=== PATIENT | male | born 1990 | race Two or more races ===

== ENCOUNTER 2024-04-28 15:29 | Outpatient (RCR) | payer MEDICAID, SELFPAY | END 2024-05-14 23:59 | disposition home or self-care (01) | LOC: SCTC 15:29 | PROVIDERS: PCP Family Medicine; Referring Provider Family Medicine; Visit Provider Internal Medicine Hematology & Oncology | DX: C62.11 Malignant neoplasm of descended right testis (principal); C78.7 Secondary malignant neoplasm of liver and intrahepatic bile duct; R59.0 Localized enlarged lymph nodes; Z92.21 Personal history of antineoplastic chemotherapy; Z90.79 Acquired absence of other genital organ(s) | CPT/HCPCS: 99212; G0463 ==

== ENCOUNTER 2024-08-18 14:33 | Outpatient (RCR) | payer MEDICAID, SELFPAY ==
--- NOTE | 2024-08-22 01:14 | CTCFLWUP_ITS ---
Patient: HELDER CALZADA : 1990 Page 8 of 10 FOLLOW UP NOTE DATE OF SERVICE: 08/18/2024 NAME: HELDER CALZADA ACCOUNT: [id number] : 1990 AGE: 34 INTERVAL HISTORY: Patient is doing well. Patient was seen at [facility]. Patient had a scan in July 2023 which showed significant decrease in size of the tumor slightly decreased size of peritoneal nodules in the left lower abdomen and mildly increased conspicuity of the mesenteric lymph nodes between 7 to [address]. [address] scan on 07/20/2024 which overall are similar to slightly decreased size of multiple hepatic fluid collections although segment 7 collection contains increasingly conspicuous intermediate density nodule given low density of prior metastasis may represent validating tablet tablets rather than disease recurrence recommend attention on follow-up imaging. Unchanged subcentimeter left peritoneal nodule. No evidence of new or worsening metastatic disease. 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 Sepulveda was treated with 3 cycles of BEP chemotherapy. 05/02/2021: Small abdominal pelvic lymphadenopathy documented in the CT scans as described below. S/p 2 cycles of etoposide and cisplatin (12/23/2021 - 01/17/2022) Recurrence. S/p 1 cycle of TIP chemotherapy. July 2022: S/p CE chemotherapy and autologous stem cell transplant. 10/23/2022: S/p excision of residual abdominal masses did not show any evidence of viable tumor 11/14/2022: Patient was found to have 12 cm abscess near liver treated with IR drain as well as antibiotics. DATE OF DIAGNOSIS: 03/31/2022 PATHOLOGY: Metastatic embryonal carcinoma STAGE/TNM: Stage IIb TREATMENT HISTORY: Care?Plan Start?Date Cycle Day Intent BEP 01/28/2021 1 21 Curative?(primary) Etoposide?Cisplatin?q21?days?4?cycles 12/23/2021 1 21 Curative?(adjuvant) HISTORY OF PRESENT ILLNESS: Helder Sepulveda is a 34-year-old ENG speaking male with following oncology history. 11/13/2020: Patient was seen in the emergency room for right testicular pain. Ultrasound done echogenic mass measuring 5.2 x 5.4 x 6.6 cm in the right testes. 11/14/2020: Patient had a right radical orchiectomy at [facility] in [facility]. Beta-hCG 40, AFP 11.5, LDH 393. These tumor markers were done few days after the surgery. Exact date is not available. 11/29/2020: CT scan of the chest abdomen and pelvis with IV contrast? 12/07/2020: beta-hCG positive, AFP 1.9, LDH 202. 12/26/2020: Beta-hCG 79, AFP less than 1.3, LDH 223. 02/19/2021: Beta-hCG less than 3, AFP 2.3 03/18/2021: Beta-hCG less than 3, alpha-fetoprotein 3.0. 01/28/2021?04/09/2021: Mr. Sepulveda was treated with 3 cycles of BEP chemotherapy. 05/02/2021: CT scan of the chest abdomen and pelvis with IV contrast? 06/12/2021: AFP 1.7, beta-hCG less than 1 07/11/2021: Patient was seen by Dr. Blayne Ponce of [facility]. 10/30/2021: AFP less than 0.9, beta-hCG less than 1. 11/13/2021: Mr. Calzada's case was presented at [facility] tumor board. 12/06/2021: Pulmonary function test? 12/13/2021: CT scan of the chest abdomen and pelvis with IV contrast 12/23/2021: Beta-hCG 10, AFP less than 1.30 12/23/2021 - 01/17/2022: Mr. Calzada received 2 cycles of etoposide and cisplatin chemotherapy. 01/13/2022: Beta-hCG less than 3, AFP 4.10 02/11/2022: AFP 1.4, beta-hCG 5 03/31/2022: AFP 2.1, beta-hCG 49, LDH 2185. 04/01/2022: See the scan of the chest abdomen and pelvis with IV contrast? 06/20/2022, 07/18/2022: S/p autologous stem cell transplantation 10/23/2022: Patient had extensive surgery for residual masses which logically did not show any malignant. 11/14/2022 - 11/26/2022: Was admitted to [facility] for abdominal abscess. He was treated with IV antibiotics and a drain 01/07/2023: AFP less than 1.8, beta-hCG less than 1. 12/26/2022: CT scan of the chest, abdomen and pelvis was done at [facility] 03/27/2023: AFP less than 1.8, beta-hCG less than 1 10/22/2023: AFP less than 1.8, beta-hCG less than 1. 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 None Medications Last Reconciled by Awilda Block MA on 08/18/2024 ALLERGIES: No Known Drug Allergies REVIEW OF SYSTEMS: A complete 14-point review of systems was performed and is negative except as noted in interval history. PHYSICAL EXAMINATION: VITAL SIGNS: PAIN: 0 - No pain GENERAL APPEARANCE: Appears well, in no apparent distress, appropriately interactive. HEENT: Normocephalic, no temporal wasting, normal conjunctiva, no scleral icterus, normal hearing, lips without lesions, neck normal range of motion. CARDIOVASCULAR: Not assessed. PULMONARY: Normal respiratory effort, no respiratory distress or use of accessory muscles, speaking in full sentences, no tachypnea. EXTREMITIES: No pedal edema or cyanosis. SKIN: Normal skin appearance. NEUROLOGIC: Alert and oriented x4. PSHYCHIATRIC: Appropriate affect, mood normal, behavior normal, intact thought and speech. LABORATORY DATA: I have personally reviewed and interpreted each of the patient?s relevant lab tests, abnormal findings are below: Date 12/23/21 01/13/22 ??WHITE?BLOOD?COUNT?(Thou/mm3) 6.9 4.0 ??RED?BLOOD?COUNT?(Miln/mm3) 5.59 5.48 ??HEMOGLOBIN?(gm/dl) 15.4 15.2 ??HEMATOCRIT?(%) 44.1 43.2 ??PLATELET?COUNT?(Thou/mm3) 225 232 ??NEUTROPHILS?%,?AUTO?(%) 67 57 ??LYMPH?%,?AUTO?(%) 23 27 ??NEUTROPHILS,?AUTO?(Thou/mm3) 4.6 2.3 ??GLUCOSE,RANDOM?(mg/dL) 88 139?H ??BLOOD?UREA?NITROGEN?(mg/dL) 10 12 ??CREATININE?(mg/dL) 0.80 0.80 ??SODIUM?(mmol/L) 139 138 ??POTASSIUM?(mmol/L) 4.1 3.9 ??CHLORIDE?(mmol/L) 108?H 103 ??CrCl?(CandG)?(ml/min) 218.03 215.18 ??AST/SGOT?(Unit/L) 34 33 ??ALT/SGPT?(Unit/L) 31 40 ??ALKALINE?PHOSPHATASE?(Unit/L) 99 92 ??BILIRUBIN,?TOTAL?(mg/dL) 0.7 0.4 ??PROTEIN?TOTAL?(gm/dl) 7.6 8.1 ??ALBUMIN,?SERUM?(gm/dl) 4.7 4.7 ??GLOBULIN?(gm/dl) 2.9 3.4 ??ALBUMIN/GLOBULIN?RATIO 1.6 1.4 ??CALCIUM,?SERUM?(mg/dL) 8.7 9.2 ??CALCIUM?SERUM?(CORRECTED)?(mg/dL) 8.7 9.2 ASSESSMENT/PLAN: 1. 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 S/p 2 cycles of etoposide and cisplatin completed on 01/17/2022. S/p robotic assisted right template RPL ND (10/14/2021) which showed 1 out of 21 lymph nodes positive for embryonal carcinoma and teratoma (10 to 15% of the kellen mass). aFP and beta-hCG are in the normal range. So far patient had 1 cycle of TIP chemotherapy at [facility]. He is scheduled to receive second cycle of TIP chemotherapy on 05/07/2022. Currently he is also being evaluated for bone marrow transplant. S/p resection of the residual masses without any evidence of residual malignancy. S/p autologous bone marrow transplantation.. Stage IIb S1 (pT2cN2, cM0) embryonal carcinoma with lymphovascular invasion and retroperitoneal lymphadenopathy. Status post right radical orchiectomy. S/p 3 cycles of BEP chemotherapy. History of smoking weed for about 5 years. Stopped in 2019 The patient denies any complaints. Recently had CT scans done at [facility] which were negative for recurrence. Recent CT scans done 01/20/2024 are negative for recurrence. Beta-hCG less than 1 and AFP less than 1.8). . CT scan on 08/04/2024 reviewed and is stable Tumor markers are negative Patient will have another CT scan in [address] abdomen pelvis as well as x-ray chest also will get CBC CMP hCG LDH and AFP No specific intervention today. The patient will be getting repeat CT scans at [facility] January 2025. I will see him back in clinic in 6 months with CBC, CMP, AFP, beta-hCG as well as LDH done prior to the visit. ORDERS: Beta-hCG LDH alpha-fetoprotein CBC CMP RETURN TO CLINIC: I will see him back in the clinic in 6 month. BILLING AND COMPLIANCE: I reviewed external records from providers outside my specialty as summarized above. I spent a total of 50 minutes on this patient?s care on the day of their visit excluding time spent related to any billed procedures. This time includes time spent with the patient as well as time spent documenting in the medical record, reviewing patients records and tests, obtaining history, placing orders, communicating with other healthcare professionals, counseling the patient, family or caregiver, and/or care coordination for the diagnoses above. Electronically Signed by: Jhoan Ford MD T: 1:11 AM CC: Patrick?Radha? PCP: Jhoan Ford Referring: Yannick Lewis This document was completed utilizing speech recognition software. Grammatical errors, random word insertions, pronoun errors, and incomplete sentences are an occasional consequence of this system due to software limitations, ambient noise, and hardware issues. Any formal questions or concerns about the content, text or information contained within the body of this dictation should be directly addressed to the provider for clarification.
== END 2024-09-12 23:59 | disposition home or self-care (01) ==
LOC: SCTC 14:33
PROVIDERS: PCP Family Medicine; Referring Provider Family Medicine; Visit Provider Internal Medicine Hematology & Oncology
DX: C62.11 Malignant neoplasm of descended right testis (principal); C78.7 Secondary malignant neoplasm of liver and intrahepatic bile duct; R59.0 Localized enlarged lymph nodes; Z92.21 Personal history of antineoplastic chemotherapy; Z90.79 Acquired absence of other genital organ(s)
CPT/HCPCS: 99212; G0463

== ENCOUNTER 2025-03-02 15:05 | Outpatient (RCR) | payer MEDICAID, SELFPAY ==
--- NOTE | 2025-03-05 22:54 | CTCFLWUP_ITS ---
Patient: HELDER CALZADA : 1990 Page 10 of 11 FOLLOW UP NOTE DATE OF SERVICE: 03/02/2025 NAME: HELDER CALZADA ACCOUNT: [id number] : 1990 AGE: 35 INTERVAL HISTORY: Patient is doing well. Patient was seen at [facility]. Patient had a scan in July 2023 which showed significant decrease in size of the tumor slightly decreased size of peritoneal nodules in the left lower abdomen and mildly increased conspicuity of the mesenteric lymph nodes between 7 to [address]. [address] scan on 07/20/2024 which overall are similar to slightly decreased size of multiple hepatic fluid collections although segment 7 collection contains increasingly conspicuous intermediate density nodule given low density of prior metastasis may represent validating tablet tablets rather than disease recurrence recommend attention on follow-up imaging. Unchanged subcentimeter left peritoneal nodule. No evidence of new or worsening metastatic disease. 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 Sepulveda was treated with 3 cycles of BEP chemotherapy. 05/02/2021: Small abdominal pelvic lymphadenopathy documented in the CT scans as described below. S/p 2 cycles of etoposide and cisplatin (12/23/2021 - 01/17/2022) Recurrence. S/p 1 cycle of TIP chemotherapy. July 2022: S/p CE chemotherapy and autologous stem cell transplant. 10/23/2022: S/p excision of residual abdominal masses did not show any evidence of viable tumor 11/14/2022: Patient was found to have 12 cm abscess near liver treated with IR drain as well as antibiotics. 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 sperrnatic cord margin negative. LVI+. PT2Nx). - CT CAP obtained at diagnosis showed retroperitoneal node involvement (including 2.1cm aortocaval node), but no pulmonary or visceral disease. Tumor markers obtained ~6 weeks after orchiectomy showed persistent elevation in bHCG. consistent with good risk Stage IIB S1 ([id number]). - He underwent 3 cycles of BEP. Post-chemotherapy tumor markers were negative. however restaging CT CAP showed persistent abdominal and pelvic lymphadenopathy. He underwent RPLND at [facility] with Dr. Ponce on 10/14/21. - Pathology from his RPLND showed residual viable tumor in 1/21 lymph nodes. The involved lymph node showed extensive necrosis (85-90%). with viable tumor comprising 10-15% of the overall kellen tumor deposit. with both embryonal carcinoma (80%) and teratoma (20%). Given that there are 10-15% viable tumor cells, we discussed adjuvant options. His PFl's were normal (DLCO high). and we recommended BEP x 1 followed by EP x 1. He completed EP x 2 locally. - Unfortunately had recurrence with visceral involvement in the liver. HCG elevated. LDH very high. Mass nearthe cecum and pattern of spread is unusual. 8x showed only small foci of atypical necrotic cells, which likely represent necrotic germ cell tumor of uncertain clinical signi?cance given the small foci and largely necrotic appearance.? CEA was negative. - Rack Maker TIP x 2 with interval response in all sites of disease. S/p CE and autoSCT x 2 (finished Jul 2022). He has recovered well. Tumor markers are normal. and he has good blood counts. 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 and anterior to the rectum. No new sites of disease. - S/p resection of all residual masses with pathology demonstrating no viable tumor - Re-staging scans at 6 months show [place]. Consolidation previously seen in lung has resolved. - Restaging scans on 07/17/23 show [place]. Restaging scans 07/2024 [place], a small area of possible debris in segment 7 of liver. Tumor markers remain undetectable. - Restaging scans 01/2025 are stable. [place]. DATE OF DIAGNOSIS: 03/31/2022 PATHOLOGY: Metastatic embryonal carcinoma STAGE/TNM: Stage IIb TREATMENT HISTORY: Care?Plan Start?Date Cycle Day Intent BEP 01/28/2021 1 21 Curative?(primary) Etoposide?Cisplatin?q21?days?4?cycles 12/23/2021 1 21 Curative?(adjuvant) HISTORY OF PRESENT ILLNESS: Helder Sepulveda is a 35-year-old ENG speaking male with following oncology history. 11/13/2020: Patient was seen in the emergency room for right testicular pain. Ultrasound done echogenic mass measuring 5.2 x 5.4 x 6.6 cm in the right testes. 11/14/2020: Patient had a right radical orchiectomy at [facility] in [facility]. Beta-hCG 40, AFP 11.5, LDH 393. These tumor markers were done few days after the surgery. Exact date is not available. 11/29/2020: CT scan of the chest abdomen and pelvis with IV contrast? 12/07/2020: beta-hCG positive, AFP 1.9, LDH 202. 12/26/2020: Beta-hCG 79, AFP less than 1.3, LDH 223. 02/19/2021: Beta-hCG less than 3, AFP 2.3 03/18/2021: Beta-hCG less than 3, alpha-fetoprotein 3.0. 01/28/2021?04/09/2021: Mr. Sepulveda was treated with 3 cycles of BEP chemotherapy. 05/02/2021: CT scan of the chest abdomen and pelvis with IV contrast? 06/12/2021: AFP 1.7, beta-hCG less than 1 07/11/2021: Patient was seen by Dr. Blayne Ponce of [facility]. 10/30/2021: AFP less than 0.9, beta-hCG less than 1. 11/13/2021: Mr. Calzada's case was presented at [facility] tumor board. 12/06/2021: Pulmonary function test? 12/13/2021: CT scan of the chest abdomen and pelvis with IV contrast 12/23/2021: Beta-hCG 10, AFP less than 1.30 12/23/2021 - 01/17/2022: Mr. Calzada received 2 cycles of etoposide and cisplatin chemotherapy. 01/13/2022: Beta-hCG less than 3, AFP 4.10 02/11/2022: AFP 1.4, beta-hCG 5 03/31/2022: AFP 2.1, beta-hCG 49, LDH 2185. 04/01/2022: See the scan of the chest abdomen and pelvis with IV contrast? 06/20/2022, 07/18/2022: S/p autologous stem cell transplantation 10/23/2022: Patient had extensive surgery for residual masses which logically did not show any malignant. 11/14/2022 - 11/26/2022: Was admitted to [facility] for abdominal abscess. He was treated with IV antibiotics and a drain 01/07/2023: AFP less than 1.8, beta-hCG less than 1. 12/26/2022: CT scan of the chest, abdomen and pelvis was done at [facility] 03/27/2023: AFP less than 1.8, beta-hCG less than 1 10/22/2023: AFP less than 1.8, beta-hCG less than 1. 01/20/2024: CT scan of the abdomen and pelvis with IV contrast 01/22/2024: AFP less than 1.8, beta-hCG less than 1, LDH 212 OTHER MEDICAL HISTORY/CONDITIONS: FAMILY HISTORY: SOCIAL HISTORY: MEDICATIONS: 1. None Medications Last Reconciled by Awilda Block MA on 03/02/2025 ALLERGIES: No Known Drug Allergies REVIEW OF SYSTEMS: A complete 14-point review of systems was performed and is negative except as noted in interval history. PHYSICAL EXAMINATION: VITAL SIGNS: PAIN: 0 - No pain ECOG Performance Status: 0 - Asymptomatic and fully active GENERAL APPEARANCE: Appears well, in no apparent distress, appropriately interactive. HEENT: Normocephalic, no temporal wasting, normal conjunctiva, no scleral icterus, normal hearing, lips without lesions, neck normal range of motion. CARDIOVASCULAR: Not assessed. PULMONARY: Normal respiratory effort, no respiratory distress or use of accessory muscles, speaking in full sentences, no tachypnea. EXTREMITIES: No pedal edema or cyanosis. SKIN: Normal skin appearance. NEUROLOGIC: Alert and oriented x4. PSHYCHIATRIC: Appropriate affect, mood normal, behavior normal, intact thought and speech. LABORATORY DATA: I have personally reviewed and interpreted each of the patient?s relevant lab tests, abnormal findings are below: Date 12/23/21 01/13/22 ??WHITE?BLOOD?COUNT?(Thou/mm3) 6.9 4.0 ??RED?BLOOD?COUNT?(Miln/mm3) 5.59 5.48 ??HEMOGLOBIN?(gm/dl) 15.4 15.2 ??HEMATOCRIT?(%) 44.1 43.2 ??PLATELET?COUNT?(Thou/mm3) 225 232 ??NEUTROPHILS?%,?AUTO?(%) 67 57 ??LYMPH?%,?AUTO?(%) 23 27 ??NEUTROPHILS,?AUTO?(Thou/mm3) 4.6 2.3 ??GLUCOSE,RANDOM?(mg/dL) 88 139?H ??BLOOD?UREA?NITROGEN?(mg/dL) 10 12 ??CREATININE?(mg/dL) 0.80 0.80 ??SODIUM?(mmol/L) 139 138 ??POTASSIUM?(mmol/L) 4.1 3.9 ??CHLORIDE?(mmol/L) 108?H 103 ??CrCl?(CandG)?(ml/min) 218.03 215.18 ??AST/SGOT?(Unit/L) 34 33 ??ALT/SGPT?(Unit/L) 31 40 ??ALKALINE?PHOSPHATASE?(Unit/L) 99 92 ??BILIRUBIN,?TOTAL?(mg/dL) 0.7 0.4 ??PROTEIN?TOTAL?(gm/dl) 7.6 8.1 ??ALBUMIN,?SERUM?(gm/dl) 4.7 4.7 ??GLOBULIN?(gm/dl) 2.9 3.4 ??ALBUMIN/GLOBULIN?RATIO 1.6 1.4 ??CALCIUM,?SERUM?(mg/dL) 8.7 9.2 ??CALCIUM?SERUM?(CORRECTED)?(mg/dL) 8.7 9.2 ASSESSMENT/PLAN: 1. 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 S/p 2 cycles of etoposide and cisplatin completed on 01/17/2022. S/p robotic assisted right template RPL ND (10/14/2021) which showed 1 out of 21 lymph nodes positive for embryonal carcinoma and teratoma (10 to 15% of the kellen mass). aFP and beta-hCG are in the normal range. So far patient had 1 cycle of TIP chemotherapy at [facility]. He is scheduled to receive second cycle of TIP chemotherapy on 05/07/2022. Currently he is also being evaluated for bone marrow transplant. S/p resection of the residual masses without any evidence of residual malignancy. S/p autologous bone marrow transplantation.. Stage IIb S1 (pT2cN2, cM0) embryonal carcinoma with lymphovascular invasion and retroperitoneal lymphadenopathy. Status post right radical orchiectomy. S/p 3 cycles of BEP chemotherapy. History of smoking weed for about 5 years. Stopped in 2019 The patient denies any complaints. Recently had CT scans done at [facility] which were negative for recurrence. Recent CT scans done 01/20/2024 are negative for recurrence. Beta-hCG less than 1 and AFP less than 1.8). . CT scan on 08/04/2024 reviewed and is stable Tumor markers are negative I will see him back in clinic in 6 months with CBC, CMP, AFP, beta-hCG as well as LDH done prior to the visit. ORDERS: Order # Description [id number] MD Follow Up 6 Month + bHCG - Quant (TM) + AFP + Comprehensive Metabolic Panel - 12 + CBC with Auto Diff [id number] Lactate Dehydrogenase (LDH) RETURN TO CLINIC: I reviewed the diagnosis, prognosis, and recommended treatment/procedure options with the patient (and/or their legal financial sales representative), including the potential benefits, risks, side effects and alternative therapies. We also discussed the option of no treatment and the possibility of clinical trial participation, if applicable. All questions were addressed, and they demonstrated understanding. They provided informed consent to proceed with the proposed plan of care. BILLING AND COMPLIANCE: I reviewed external records from providers outside my specialty as summarized above. I spent a total of 50 minutes on this patient?s care on the day of their visit excluding time spent related to any billed procedures. This time includes time spent with the patient as well as time spent documenting in the medical record, reviewing patients records and tests, obtaining history, placing orders, communicating with other healthcare professionals, counseling the patient, family or caregiver, and/or care coordination for the diagnoses above. Electronically Signed by: {Object.Sanct_ID*[email or web address]@M}, {Object.Sanct_ID*PnP.Suffix@U} D: {Object.Sanct_Date} T: {Object.Sanct_Time} CC: Patrick?Radha,? PCP: Yannick Lewis Referring: Yannick Lewis This document was completed utilizing speech recognition software. Grammatical errors, random word insertions, pronoun errors, and incomplete sentences are an occasional consequence of this system due to software limitations, ambient noise, and hardware issues. Any formal questions or concerns about the content, text or information contained within the body of this dictation should be directly addressed to the provider for clarification.
== END 2025-03-14 23:59 | disposition home or self-care (01) ==
LOC: SCTC 15:05
PROVIDERS: PCP Family Medicine; Referring Provider Family Medicine; Visit Provider Internal Medicine Hematology & Oncology
DX: Z08 Encounter for follow-up examination after completed treatment for malignant neoplasm (principal); Z85.47 Personal history of malignant neoplasm of testis; Z92.21 Personal history of antineoplastic chemotherapy; Z90.79 Acquired absence of other genital organ(s)
CPT/HCPCS: 99212; G0463